=== PATIENT | male | born 1990 | race Two or more races ===

== ENCOUNTER 2023-02-17 19:28 | Emergency (ER) | payer OTHER ==
[~2023-02-17] VITALS: Ht 167.6 cm; Wt 76.0 kg
[2023-02-17 19:37] VITALS: BP 117/76
[2023-02-17] MEDS ORDERED: NAPROXEN500 MG PO (21:02)
[2023-02-17 21:22] VITALS: BP 117/76
== END 2023-02-17 21:28 | disposition home or self-care (01) ==
LOC: ED 19:28
DX: S33.5XXA Sprain of ligaments of lumbar spine, initial encounter (principal); X58.XXXA Exposure to other specified factors, initial encounter